=== PATIENT | female | born 1990 | race Caucasian/White ===

== ENCOUNTER 2022-02-27 14:13 | Emergency (ER) | payer SELFPAY ==
[~2022-02-27] VITALS: Ht 167 cm; Wt 68.0 kg
--- NOTE | 2022-02-27 14:46 | ED EENT ---
History of Present Illness General Chief Complaint: Ear Problems Stated Complaint: EAR PAIN | SINUS ISSUE Nursing Triage Note: ARRIVED VIA AMB WITH COMPLAINTS OF RIGHT SIDED EAR PAIN THAT STARTED DRAINING BLOOD LAST NIGHT. STATES SHE HAS HAD SINUS ISSUES X2 WEEKS. Source: patient Exam Limitations: no limitations History of Present Illness Date Seen by Provider: Feb 27, 2022 Time Seen by Provider: 14:46 Allergies and Home Medications Allergies Coded Allergies: No Known Drug Allergies (Unverified , 02/27/22) Past Qhixiiv-[id number]-Zsmric Hx Patient Social History Tobacco Use?: Yes Smoking Status: Current Everyday Smoker Substance use?: No Past Medical History Last Menstrual Period: Feb 07, 2022 Physical Exam Vital Signs Vital Signs - First Documented 02/27/22 14:18 Temp 36.8 Pulse 90 Resp 16 B/P (MAP) 132/89 (103) Pulse Ox 98 O2 Delivery Room Air Height, Weight, BMI Height: '" Weight: lbs. oz. kg; 24.00 BMI Method: Progress/Results/Core Measures Results/Orders My Orders Orders - NITIN KAISER APRN Clindamycin Capsule (Cleocin Capsule) (02/27/22 15:15) Ketorolac Injection (Toradol Injection) (02/27/22 15:15) Medications Given in ED Current Medications Medications Dose Ordered Sig/Lesley Route Start Time Stop Time Status Last Admin Dose Admin Clindamycin HCl 300 mg ONCE ONCE PO 02/27/22 15:15 02/27/22 15:16 DC 02/27/22 15:24 300 MG Ketorolac Tromethamine 60 mg ONCE ONCE IM 02/27/22 15:15 02/27/22 15:17 DC 02/27/22 15:24 60 MG Vital Signs/I&O 02/27/22 14:18 Temp 36.8 Pulse 90 Resp 16 B/P (MAP) 132/89 (103) Pulse Ox 98 O2 Delivery Room Air Blood Pressure Mean: 103 Departure Impression Primary Impression: Otitis media Disposition: 01 HOME, SELF-CARE Condition: Improved Departure-Patient Inst. Decision time for Depature: 15:31 Referrals: NO,LOCAL PHYSICIAN (PCP/Family) Primary Care Physician Patient Instructions: Ear Infections (Otitis Media) in Adults (DC) Add. Discharge Instructions: Plan: 1. Instill 4 drops into affected ear twice a day for 7 days. 2. Take antibiotics 3 times daily as directed and complete full course even if you begin to feel better. 3. You can take Tylenol 1000 mg with ibuprofen 600 mg every 8 hours as needed for severe pain 4. Follow-up with your primary care provider if symptoms persist. 5. Return to the ER for any new, concerning, worsening symptoms. All discharge instructions reviewed with patient and/or family. Voiced understanding. Scripts Clindamycin HCl (Clindamycin HCl) 300 Mg Capsule 300 MG PO TID for 7 Days, #21 CAP 0 Refills Prov: NITIN KAISER APRN 02/27/22 Ciprofloxacin/Hydrocortisone (Cipro Hc Otic Suspension) 0.2 %-1 % Susp 4 DROPS OT Q12H for 7 Days, #7.5 ML 0 Refills Prov: NITIN KAISER APRN 02/27/22 NITIN KASIER APRN Feb 27, 2022 14:46
[2022-02-27] MEDS ORDERED: KETOROLAC 60 MG/2 ML VIAL IM ONE (15:15)
[2022-02-27] MEDS ORDERED: CLINDAMYCIN 150 MG (CLEOCIN) CAP PO ONE (15:15)
[2022-02-27] MEDS ORDERED: NF-CIPROHC OT (15:35)
[2022-02-27] MEDS ORDERED: CLIN-144 PO (15:36)
[2022-02-27 15:45] VITALS: BP 132/89
== END 2022-02-27 15:45 | disposition home or self-care (01) ==
LOC: ER 14:16
DX: H66.91 Otitis media, unspecified, right ear (principal); F17.200 Nicotine dependence, unspecified, uncomplicated; Z28.310 Unvaccinated for COVID-19